=== PATIENT | female | born 1945 | race Caucasian/White ===

== ENCOUNTER 2025-01-13 15:23 | Emergency (ER) | payer MEDICARE, BC ==
[~2025-01-13] VITALS: Ht 167.6 cm; Wt 82.0 kg
[2025-01-13 15:25] VITALS: O2SAT 99
[2025-01-13] MEDS: MORPHINE SULFATE 4 MG/ML INJ (FOR IV/IM USE) IV ONE (16:18)
[2025-01-13] MEDS ORDERED: ETOMIDATE 2MG/ML 10ML VIAL IV NR (17:00)
[2025-01-13] MEDS ORDERED: ETOMIDATE 2MG/ML 10ML VIAL IV ONE (17:00)
[2025-01-13] MEDS: INSULIN LISPRO 100 UNITS/ML SUBCUT ONE (17:30)
[2025-01-13 18:25] VITALS: TEMP 36.9
[2025-01-13 19:18] VITALS: TEMP 98.4
[2025-01-13] MEDS ORDERED: IBUP-2029 MT (19:28)
[2025-01-13] MEDS ORDERED: OXYC-100 MT (20:28)
[2025-01-13] MEDS ORDERED: NALO4SPR BOTHNSTRLS (20:30)
[2025-01-13 20:44] VITALS: BP 139/52; PULSE 63; RESP 15; O2SAT 99
== END 2025-01-13 21:31 | disposition home or self-care (01) ==
LOC: ER 16:09
DX: S43.004A Unspecified dislocation of right shoulder joint, initial encounter (principal); S09.90XA Unspecified injury of head, initial encounter; E78.5 Hyperlipidemia, unspecified; E11.9 Type 2 diabetes mellitus without complications; I10 Essential (primary) hypertension; W01.0XXA Fall on same level from slipping, tripping and stumbling without subsequent striking against object, initial encounter; Y93.01 Activity, walking, marching and hiking; Y92.89 Other specified places as the place of occurrence of the external cause; Y99.8 Other external cause status
CPT/HCPCS: 99291; 23650; 96374; 70450; 82962; 72170; 73030; 99152; J3490; J1815; J2270